=== PATIENT | female | born 1960 | race Caucasian/White ===

== ENCOUNTER 2017-06-14 17:03 | Emergency (ER) | payer MEDICARE, MEDICAID ==
[~2017-06-14] VITALS: Ht 165.1 cm; Wt 96.7 kg
[~2017-06-14 17:03] MED LIST: ACET-1008 PO; ACET-2119 PO; ALBU8.5H4 IH
[2017-06-14 17:14] VITALS: BP 123/57
== END 2017-06-14 18:32 | disposition home or self-care (01) ==
LOC: ER 17:04
DX: Z00.00 Encounter for general adult medical examination without abnormal findings (principal); E78.00 Pure hypercholesterolemia, unspecified; J45.909 Unspecified asthma, uncomplicated; Z59.0 Homelessness
CPT/HCPCS: 99281

== ENCOUNTER 2024-05-29 14:23 | Outpatient (CLI) | payer MEDICARE, MEDICAID | END 2024-05-29 23:59 | disposition home or self-care (01) | LOC: RAD 14:23 | PROVIDERS: ATTEND Nurse Practitioner Psychiatric/Mental Health | DX: F20.9 Schizophrenia, unspecified (principal); Z79.899 Other long term (current) drug therapy | CPT/HCPCS: 93005 ==